=== PATIENT | female | born 1940 | race Caucasian/White ===

== ENCOUNTER 2018-04-20 21:00 | Emergency (ER) | payer BC ==
[2018-04-20] MEDS ORDERED: PROPARACAINE 0.5% 15 ML OPHT DROP ONE (21:59)
[2018-04-20] MEDS ORDERED: FLUORESCEIN SODIUM 1 MG STRIP OP ONE (21:59)
[2018-04-20] MEDS ORDERED: TDAP ADULT 0.5 ML INJ (BOOSTRIX) IM ONE (22:04)
[2018-04-20] MEDS ORDERED: IBUPROFEN 600 MG TAB PO ONE (22:56)
--- NOTE | 2018-04-20 22:56 | EDPHY ---
H & P Time Seen by Provider: 04/20/18 21:32 HPI/ROS: CHIEF COMPLAINT: Eyebrow laceration and headache status post fall HISTORY OF PRESENT ILLNESS: Patient is a 77-year-old female who unfortunately slipped on a rock and fell in her forehead while ambulating to her car after dinner. She did admit to having a glass of wine with dinner. She denies any neck pain or loss of consciousness or vision changes. She does not take any blood thinners. She denies any other associated injuries. REVIEW OF SYSTEMS: Constitutional: No fever, no chills. Eyes: No discharge. ENT: No sore throat. Cardiovascular: No chest pain, no palpitations. Respiratory: No cough, no shortness of breath. Gastrointestinal: No abdominal pain, no vomiting. Genitourinary: No hematuria. Musculoskeletal: No back pain. Skin: No rashes. Neurological: + headache. Smoking Status: Never smoked Physical Exam: General Appearance: Alert and no distress. ENT: normal dentition. No tonsillar exudate or swelling. Eyes: Pupils equal and round no injection. Funduscopic exam reveals no hyphema put that she has a small subconjunctival hemorrhage. Fluorescein staining reveals increased uptake to the superior cornea with negative Ciara sign Respiratory: Chest is nontender, lungs are clear to auscultation. Cardiac: regular rate and rhythm. No lower extremity edema Gastrointestinal: Abdomen is soft and nontender, no masses, bowel sounds normal. Musculoskeletal: Neck is supple and nontender. Extremities have full range of motion and are nontender without deformity Skin: No rashes. 2.5 cm laceration to right eyebrow. No crepitus to the forehead. Neuro: Cranial nerves grossly intact. No nystagmus. Normal [id number] testing. No ulnar drift. Equal grasp bilateral hands. Ambulatory. Constitutional: Initial Vital Signs Temperature (C) 36.5 C 04/20/18 21:11 Heart Rate 81 04/20/18 21:11 Respiratory Rate 20 04/20/18 21:11 Blood Pressure 206/102 H 04/20/18 21:11 O2 Sat (%) 95 04/20/18 21:11 Allergies/Adverse Reactions: Sulfa (Sulfonamide Antibiotics) Allergy (Verified 04/20/18 21:10) Home Medications: Medication Instructions Recorded Levofloxacin 04/20/18 Polymyxin B Sulfate/Tmp [Polytrim 1 drops EACHEYE QID 5 Days #1 04/20/18 Opht Drops (*)] bottle SIMVASTATIN 04/20/18 Medical Decision Making - Diagnostics Imaging Results: Imaging Impressions Head CT 04/20/18 21:32 Impression: Right brow laceration. Otherwise negative. Results called to Dr. Espinosa at 10:00 PM. General information for patients regarding this examination can be found at [email or web address]. If you have questions or comments about this report, please contact me at (hospital) or [phone] (cell). Procedures: Procedure: Laceration repair. Verbal consent was obtained from the patient. The 2.5 cm laceration on the right eyelid was anesthetized in the usual fashion. The wound was irrigated, draped and explored to its base with a gloved finger. There were no deep structures involved. No tendon injury was identified. The wound was repaired with 8 6-0 nylon sutures. The wound repair was closely approximated. The procedure was performed by myself. ED Course/Re-evaluation: Patient here with minor closed head injury after trip and fall. CT scan of the head reveals no fracture of the skull or intracranial bleed or orbital wall fracture. She does have a corneal abrasion and laceration of the eyebrow was repaired without complication. Differential Diagnosis: Skull fracture, orbital fracture, open globe, corneal foreign body, cervical spine injury - Data Points Medications Given: Discontinued Medications Diphtheria/Tetanus/Acell Pertussis (Boostrix) 0.5 ml IM .ONCE ONE Stop: 04/20/18 22:05 Last Admin: 04/20/18 22:15 Dose: 0.5 ml Ibuprofen (Motrin) 600 mg PO EDNOW ONE Stop: 04/20/18 22:57 Last Admin: 04/20/18 23:02 Dose: 600 mg Departure - Departure Disposition: Home, Routine, Self-Care Clinical Impression: Eyebrow laceration, Corneal abrasion Condition: Good Instructions: Laceration (DC), Corneal Abrasion (ED) Additional Instructions: Please follow up in the next 5 days for suture removal. Start eyedrops for corneal abrasion tomorrow. Referrals: NONE *PRIMARY CARE P,. [Primary Care Provider] - As per Instructions [facility],. [Clinic] - As per Instructions Prescriptions: Polymyxin B Sulfate/Tmp [Polytrim Opht Drops (*)] 1 drops EACHEYE QID 5 Days #1 bottle
[2018-04-20 23:12] VITALS: BP 119/70
== END 2018-04-20 23:12 | disposition home or self-care (01) ==
PROC: 0HQ1XZZ Repair Face Skin, External Approach (ICD-10-PCS; principal; 2018-04-20)
DX: S01.111A Laceration without foreign body of right eyelid and periocular area, initial encounter (principal); Z23 Encounter for immunization; W19.XXXA Unspecified fall, initial encounter; Y92.9 Unspecified place or not applicable; Y93.9 Activity, unspecified; Y99.9 Unspecified external cause status